=== PATIENT | male | born 2000 | race African-American/Black ===

== ENCOUNTER 2024-08-23 11:05 | Emergency (ER) | payer MEDICAID ==
[~2024-08-23] VITALS: Ht 180.3 cm; Wt 81.0 kg
[2024-08-23 11:06] VITALS: PULSE 71; RESP 16; O2SAT 100
[2024-08-23 11:11] VITALS: BP 127/71; TEMP 36.6; O2SAT 100
[2024-08-23] MEDS: CEFTRIAXONE SODIUM 1G VIAL IM ONE (13:45)
[2024-08-23] MEDS: DOXYCYCLINE HYCLATE 100MG CAPSULE PO ONE (13:45)
[2024-08-23 14:55] LABS: CHLORIDE 103 mEq/L (98-107); POTASSIUM 3.4 mEq/L (3.5-5.1); SODIUM 137 mEq/L (136-145)
[2024-08-23 14:56] LABS: CALCIUM 9.1 mg/dL (8.7-10.4); CARBON DIOXIDE 26 mEq/L (21-32); HEMATOCRIT. 43.7 % (42.0-52.0); HEMOGLOBIN. 13.8 g/dL (14.0-18.0); MEAN CORPUSCULAR HEMOGLOBIN 27.2 pg (28.0-32.0); MEAN CORPUSCULAR HGB CONC 31.5 g/dL (31.0-37.0); MEAN CORPUSCULAR VOLUME 86.4 fL (80.0-94.0); MEAN PLATELET VOLUME 10.8 fl (7.4-10.4); PLATELET 164 x1000/uL (130-400); RED BLOOD CELL COUNT 5.05 mill/uL (4.7-6.1); RED CELL DISTRIBUTION WIDTH 13.5 % (11.6-14.6); WHITE BLOOD COUNT 5.4 x1000/uL (4.5-11.0)
[2024-08-23 14:59] LABS: DIFFERENTIAL COMMENT 1
[2024-08-23 15:01] LABS: GLUCOSE 60 mg/dL (70-105); UREA NITROGEN BLOOD 15 mg/dL (9-23)
[2024-08-23 15:06] LABS: CLARITY URINE CLOUDY (CLEAR); COLOR URINE DARK YELLOW (YELLOW); GLUCOSE URINE NEGATIVE (NEGATIVE); KETONES URINE 3+ (NEGATIVE); LEUKOCYTE ESTERASE URINE 2+ (NEGATIVE); NITRITE URINE NEGATIVE (NEGATIVE); OCCULT BLOOD URINE TRACE (NEGATIVE); PH URINE 5.5 (4.5-8.0); PROTEIN URINE 1+ (NEGATIVE); SPECIFIC GRAVITY URINE 1.032 (1.005-1.030)
[2024-08-23] MEDS ORDERED: CEPH250C2 MT (15:11)
[2024-08-23 15:24] LABS: BACTERIA URINE 1+; SQUAMOUS EPITHELIAL CELL URINE NONE SEEN /lpf (RARE/1+); WBC URINE 50-100 /hpf (0-2); YEAST URINE NONE SEEN
[2024-08-23 16:24] LABS: PLATELET ESTIMATE NORMAL
== END 2024-08-23 15:21 | disposition home or self-care (01) ==
LOC: ER 11:05
DX: Z20.2 Contact with and (suspected) exposure to infections with a predominantly sexual mode of transmission (principal); Z11.3 Encounter for screening for infections with a predominantly sexual mode of transmission
CPT/HCPCS: 99283; 86592; 87491; 87591; 80048; 81003; 85025; 87086; 36415; 96372; J0696